=== PATIENT | female | born 1975 | race Caucasian/White ===

== ENCOUNTER → 2017-01-23 | Outpatient (CLI) | payer OTHER ==
[~2017-01-23] MED LIST: AUGMENTIN 875875 MG PO; CLARITIN10 MG PO
== END | disposition home or self-care (01) ==
LOC: US 01-17 17:00
DX: R53.83 Other fatigue (principal); N32.89 Other specified disorders of bladder; Z82.71 Family history of polycystic kidney

== ENCOUNTER → 2019-03-10 | Outpatient (CLI) | payer SELFPAY ==
[2019-03-10 16:53] LABS: BASO % 0.4 % (0.0-1.0); EOS # 0.2 10*3/uL (0.0-0.4); EOS % 2.5 % (1.0-4.0); HEMATOCRIT 37.9 % (37.0-47.0); HEMOGLOBIN 13.6 g/dl (12.0-16.0); LYMPH # 2.1 10*3/uL (1.3-4.4); LYMPH % 30.6 % (27.0-41.0); MEAN CELL VOLUME 89.8 fl (81.0-99.0); MEAN CORPUSCULAR HGB 32.2 pg (27.0-31.0); MEAN CORPUSCULAR HGB CONC 35.9 g/dl (33.0-37.0); MONO # 0.5 10*3/uL (0.1-1.0); NEUT % 59.4 % (47.0-73.0); PLATELET COUNT AUTOMATED 230 10*3/uL (130-400); RED BLOOD COUNT 4.22 10*6/uL (4.10-5.10); RED CELL DISTRI WIDTH 11.7 % (0-14.5); WHITE BLOOD COUNT 6.7 10*3/uL (4.8-10.8)
[2019-03-10 17:26] LABS: CHLORIDE 102 mmol/L (98-107); POTASSIUM 3.5 mmol/L (3.5-5.1); SODIUM 136 mmol/L (136-145)
[2019-03-10 17:42] LABS: ALBUMIN 4.4 gm/dl (3.1-4.5); ALKALINE PHOSPHATASE 64 U/L (45-117); BUN 6 mg/dl (7-24); CHOLESTEROL 141 mg/dL (<200); CREATININE 0.68 mg/dL (0.55-1.02); HDL CHOLESTEROL 67 mg/dl (40-60); LDL CHOLESTEROL 61 mg/dL (9-159); SGOT/AST 8 IU/L (3-35); SGPT/ALT 22 U/L (12-78); TOTAL PROTEIN 7.7 gm/dL (6.4-8.2); TRIGLYCERIDES 67 mg/dl (<150); VLDL CHOLESTEROL 13 mg/dL (6-40)
== END | disposition home or self-care (01) ==
LOC: RESCLI 03:46
PROVIDERS: Internal Medicine Nephrology
DX: J06.9 Acute upper respiratory infection, unspecified (principal); F90.9 Attention-deficit hyperactivity disorder, unspecified type; N94.819 Vulvodynia, unspecified; Z79.899 Other long term (current) drug therapy

== ENCOUNTER → 2024-03-16 | Outpatient (CLI) | payer OTHER | END | disposition home or self-care (01) | LOC: RESCLI 16:18 | PROVIDERS: ATTEND Internal Medicine | DX: L29.9 Pruritus, unspecified (principal); M79.671 Pain in right foot; F90.9 Attention-deficit hyperactivity disorder, unspecified type; Z01.89 Encounter for other specified special examinations; Z88.8 Allergy status to other drugs, medicaments and biological substances; Z91.013 Allergy to seafood; Z91.041 Radiographic dye allergy status; Z82.49 Family history of ischemic heart disease and other diseases of the circulatory system; Z90.49 Acquired absence of other specified parts of digestive tract; Z98.890 Other specified postprocedural states; Z68.31 Body mass index [BMI] 31.0-31.9, adult; Z79.899 Other long term (current) drug therapy ==